=== PATIENT | female | born 1975 | race Caucasian/White ===

== ENCOUNTER 2017-06-09 11:08 | Emergency (ER) | payer MEDICAID ==
[~2017-06-09] VITALS: Ht 172.7 cm; Wt 109.0 kg
[2017-06-09] MEDS ORDERED: IBUPROFEN 600MG TABLET PO ONE (12:30)
[2017-06-09 12:33] VITALS: BP 169/70
== END 2017-06-09 13:23 | disposition home or self-care (01) ==
LOC: ER 12:46
DX: M79.673 Pain in unspecified foot (principal); S93.602A Unspecified sprain of left foot, initial encounter; M77.32 Calcaneal spur, left foot; M19.072 Primary osteoarthritis, left ankle and foot; I10 Essential (primary) hypertension; E11.9 Type 2 diabetes mellitus without complications; X58.XXXA Exposure to other specified factors, initial encounter; Y93.9 Activity, unspecified; Y92.9 Unspecified place or not applicable; Z90.49 Acquired absence of other specified parts of digestive tract
CPT/HCPCS: 73630; 81025; 99284

== ENCOUNTER 2020-05-10 12:47 | Emergency (ER) | payer MEDICAID ==
[~2020-05-10] VITALS: Ht 170.2 cm; Wt 118.0 kg
[2020-05-10] MEDS ORDERED: KETOROLAC 30MG/ML VIAL IM ONE (13:30)
[2020-05-10 13:45] VITALS: BP 174/80
== END 2020-05-10 14:17 | disposition home or self-care (01) ==
LOC: ER 12:47
DX: M54.9 Dorsalgia, unspecified (principal); S30.810A Abrasion of lower back and pelvis, initial encounter; X58.XXXA Exposure to other specified factors, initial encounter; Y93.9 Activity, unspecified; Y92.9 Unspecified place or not applicable; E11.9 Type 2 diabetes mellitus without complications; I10 Essential (primary) hypertension; Z90.49 Acquired absence of other specified parts of digestive tract
CPT/HCPCS: 81025; 96372; 99283; J1885